=== PATIENT | female | born 1940 | race Caucasian/White ===

== ENCOUNTER 2019-12-18 10:43 | Inpatient (IN) | payer MEDICARE, OTHER ==
[~2019-12-18] VITALS: Ht 167.6 cm; Wt 107.5 kg
[~2019-12-18 10:43] MED LIST: ASPIRIN81 MG PO; AVAPRO300 MG PO; CALCIUM500 MG PO; CLONIDINE HCL0.2 MG PO; PRAVACHOL40 MG PO; TOPROL XL100 MG PO; VITAMIN C PO; VITAMIN C500 M1 PO; VITAMIN E400 UNIT PO; [UNRECOGNIZED DRUG - OTHER] PO
--- OUTSIDE RECORDS SUMMARY | 2019-12-18 10:45 | XMS REPORT ---
[facility] Address Unknown Phone Unavailable Care Team Providers Care Accounting Generalist Name Role Phone Unavailable Unavailable Payers Payer Name Policy Type Policy Number Effective Date Expiration Date Problems This patient has no known problems. Allergies, Adverse Reactions, Alerts Allergy Name Allergy Type Status Severity Reaction(s) Onset Date Inactive Date Treating Clinician Comments No Known Allergies DA Active U 2016-11-23 00:00:00 Medications This patient has no known medications.
[2019-12-18] MEDS ORDERED: SODIUM CHLORIDE 0.9% 500ML 500 ML IV ONE (11:00)
[2019-12-18 11:34] LABS: BASOPHILS % 0.3 % (0.0-1.0); HEMATOCRIT 37.6 % (34.2-44.1); LYMPHOCYTES # (AUTO) 0.8 (1.0-3.2); LYMPHOCYTES % 6.6 % (18.0-39.1); MEAN CORPUSCULAR HEMOGLOBIN 28.3 pg (28-32); MEAN CORPUSCULAR HGB CONC 31.9 g/dL (31-35); MEAN CORPUSCULAR VOLUME 88.7 fL (81-99); MONOCYTES # (AUTO) 1.1 (0.2-0.8); MONOCYTES % 9.3 % (4.4-11.3); NEUTROPHILS # (AUTO) 9.4 (2.1-6.9); NEUTROPHILS % 83.3 % (38.7-80.0); PLATELET COUNT 138 x10e3/uL (140-360); RED BLOOD COUNT 4.24 x10e6/uL (3.6-5.1); RED CELL DISTRIBUTION WIDTH 14.5 % (11.7-14.4)
[2019-12-18 11:48] LABS: INR 1.61; PROTHROMBIN TIME 20.3 seconds (11.9-14.5)
[2019-12-18 11:49] LABS: PARTIAL THROMBOPLASTIN TIME 39.1 seconds (23.8-35.5)
--- NOTE | 2019-12-18 11:53 | Diagnostic Imaging Report ---
Examination: Single AP view of the chest. COMPARISON: None. INDICATION: Shortness of breath, headache DISCUSSION: The lungs are well-inflated. Small bilateral pleural effusions, right larger than left, with bibasilar airspace opacities, as well as patchy perihilar opacities left worse than right Left subclavian approach implantable cardiac device body and leads are noted. Enlargement of the cardiac silhouette with prominence of the central pulmonary vasculature. No acute osseous abnormalities. IMPRESSION: Cardiomegaly with interstitial edema and small bilateral pleural effusions. Bibasilar airspace opacities likely reflect atelectasis, though pneumonia is an additional consideration in the appropriate clinical setting. Signed by: Dr. Stefano Estrada M.D. on 12/18/2019 11:50 AM
[2019-12-18 12:00] LABS: ALBUMIN 3.5 g/dL (3.5-5.0); ANION GAP 18.2 mmol/L (8-16); CALCIUM 9.6 mg/dL (8.4-10.2); CREATININE, SERUM 1.08 mg/dL (0.57-1.11); MAGNESIUM 1.7 MG/DL (1.3-2.1); POTASSIUM 4.2 mmol/L (3.5-5.1)
[2019-12-18 12:20] LABS: CREATINE KINASE MB 0.8 ng/mL (0-5.0); THYROID STIMULATING HORMONE 2.484 uIU/mL (0.350-4.940)
[2019-12-18] MEDS: CEFTRIAXONE SOD 1 GM/NS 50 ML 50 ML IV SCH (12:36)
[2019-12-18 12:47] LABS: INFLUENZAE A&B ANTIGEN (RAPID) NEGATIVE (NEGATIVE); STREPTOCOCCUS GRP A ANTIGEN NEGATIVE (NEGATIVE)
[2019-12-18] MEDS ORDERED: CLONIDINE HCL0.2 MG PO (12:48)
[2019-12-18] MEDS ORDERED: METOPROLOL SUCC50 MG PO (12:51)
[2019-12-18] MEDS ORDERED: XARELTO20 MG PO (12:51)
[2019-12-18] MEDS ORDERED: AMLODIPINE BESY10 MG PO (12:51)
[2019-12-18] MEDS ORDERED: FLECAINIDE ACE100 MG PO (12:51)
[2019-12-18] MEDS: AZITHROMYCIN 500MG/NS 250 ML 250 ML IV SCH (13:02)
[2019-12-18] MEDS ORDERED: FUROSEMIDE INJ 10 MG/ML 4 ML VIAL IV ONE (13:15)
[2019-12-18 14:21] LABS: BILIRUBIN,URINE NEGATIVE (NEGATIVE); CLARITY,URINE CLEAR (CLEAR); COLOR,URINE YELLOW (YELLOW); KETONES,URINE NEGATIVE (NEGATIVE); LEUKOCYTE ESTERASE ,URINE NEGATIVE (NEGATIVE); NITRITE,URINE NEGATIVE (NEGATIVE); PROTEIN,URINE DIPSTICK NEGATIVE (NEGATIVE); URINE UROBILINOGEN 0.2 mg/dL (0.2 - 1)
[2019-12-18 14:42] LABS: BACTERIA,URINE FEW /HPF; EPITHELIAL CELLS,URINE FEW /LPF; RBC,URINE 0-5 /HPF (0-5); WBC,URINE (MAN) 0-5 /HPF (0-5)
--- NOTE | 2019-12-18 15:19 | Pre Op History & Physical ---
REASON FOR ADMISSION: Ms. Valdez is a charming, but elderly 79-year-old woman, who presents to the emergency room with a complaint of cough. HISTORY OF PRESENT ILLNESS: The patient reports over the last three days she has had cough, thought maybe she had some fever, but denies sputum production. She "thought she might be getting the flu" even though she had flu vaccine earlier this year. PAST MEDICAL HISTORY: Significant for longstanding hypertension and hyperlipidemia. She is known to have rheumatic valvular disease with aortic stenosis, aortic insufficiency as far back as 2013. She had previous episodes of atrial fibrillation and had permanent pacemaker implant in November 2016. She had benign breast tumor removed in 1994 and hysterectomy in 1965. MEDICATIONS: Her recent home medications have been: 1. Clonidine 0.2 mg twice a day. 2. Amlodipine 10 mg daily. 3. Alendronate 70 mg weekly. 4. Losartan 100 mg daily. 5. Metoprolol ER 50 mg daily. 6. Xarelto 20 mg daily. 7. Flecainide 100 mg twice a day. PERSONAL AND SOCIAL HISTORY: She does not smoke or drink. FAMILY HISTORY: Her mother lived to be 92 years of age. One brother had rheumatic fever as a child and one brother had coronary artery bypass graft surgery, at 74, spinal cord injury. PHYSICAL EXAMINATION: GENERAL: At this time shows a large white woman about 5 feet 7 inches tall, weighing 213 pounds. VITAL SIGNS: Blood pressure is 130/80. HEAD, EYES, EARS, NOSE, AND THROAT: Unremarkable. NECK: Thick. THORAX: Heart sounds S1 and S2 reduced. There is a 3/6 systolic murmur. LUNGS: Relatively clear. CHEST: Left subclavian pacemaker site intact. ABDOMEN: Normal bowel sounds. EXTREMITIES: Trace pretibial edema. PERTINENT LABORATORY STUDIES: White count 11.2 and hemoglobin 12.0. BUN 14 and creatinine 1.0. Glucose 125. ASSESSMENT: 1. Possible bronchitis and cough. 2. Aortic stenosis with current calculated aortic orifice today 0.6 cm2 with a peak gradient 69 mmHg. PLAN: Given antibiotics and diuretics and we will monitor closely. We will consider whether to plan cardiac catheterization for her. Further management based on clinical course. MD TOBY John/CATHY /[id number]
[2019-12-18 16:03] VITALS: BP 149/73
[2019-12-18 16:30] VITALS: BP 149/90
[2019-12-18] MEDS: CLONIDINE HCL 0.2 MG TAB PO SCH (18:07)
[2019-12-18] MEDS: METOPROLOL SUCCINATE 50 MG TAB XL PO SCH (18:10)
[2019-12-18] MEDS: FLECAINIDE ACETATE 100 MG TAB PO SCH (18:10)
[2019-12-18 19:18] LABS: CREATINE KINASE MB 0.9 ng/mL (0-5.0)
[2019-12-18 20:00] VITALS: BP 141/71
[2019-12-18] MEDS ORDERED: RIVAROXABAN 20 MG TABLET PO SCH (21:00)
[2019-12-18 22:00] VITALS: BP 149/73
[2019-12-19] VITALS (8 sets, daily range): BP systolic 113–146; BP diastolic 60–80
[2019-12-19 02:00] LABS: CREATINE KINASE MB 0.8 ng/mL (0-5.0)
[2019-12-19 06:09] LABS: BASOPHILS % 0.2 % (0.0-1.0); EOSINOPHILS % 0.2 % (0.0-6.0); HEMATOCRIT 35.3 % (34.2-44.1); HEMOGLOBIN 11.3 g/dL (12.0-16.0); LYMPHOCYTES # (AUTO) 0.9 (1.0-3.2); LYMPHOCYTES % 7.3 % (18.0-39.1); MEAN CORPUSCULAR HEMOGLOBIN 28.2 pg (28-32); MONOCYTES # (AUTO) 1.4 (0.2-0.8); MONOCYTES % 11.6 % (4.4-11.3); NEUTROPHILS # (AUTO) 9.7 (2.1-6.9); NEUTROPHILS % 80.2 % (38.7-80.0); PLATELET COUNT 124 x10e3/uL (140-360); RED BLOOD COUNT 4.01 x10e6/uL (3.6-5.1); RED CELL DISTRIBUTION WIDTH 14.3 % (11.7-14.4)
[2019-12-19 06:28] LABS: ALBUMIN/GLOBULIN RATIO 0.9 (0.8-2.0); CREATININE, SERUM 0.98 mg/dL (0.57-1.11)
--- NOTE | 2019-12-19 08:09 | Diagnostic Imaging Report ---
Examination: Single AP view of the chest. COMPARISON: 12/17/2019. INDICATION: Shortness of breath, headache DISCUSSION: Increasing bilateral perihilar patchy airspace disease. Bilateral pleural effusions, right larger than left, with stable bibasilar patchy densities, left greater than right. Left subclavian approach implantable cardiac device body and leads are noted. Enlargement of the cardiac silhouette with prominence of the central pulmonary vasculature. No acute osseous abnormalities. IMPRESSION: Interval increase in findings suggestive of decompensated congestive heart failure with increasing patchy airspace disease particularly on the left midlung either representing pulmonary edema and/or superimposed infection. Signed by: Dr. Susan Villagran M.D. on 12/19/2019 8:06 AM
[2019-12-19] MEDS: CLONIDINE HCL 0.2 MG TAB PO SCH ×2 (08:28→16:37)
[2019-12-19] MEDS: AMLODIPINE BESYLATE 10 MG TAB PO SCH ×2 (08:28→16:38)
[2019-12-19] MEDS: METOPROLOL SUCCINATE 50 MG TAB XL PO SCH ×2 (08:29→16:38)
[2019-12-19] MEDS: FLECAINIDE ACETATE 100 MG TAB PO SCH ×2 (08:29→16:37)
[2019-12-19] MEDS: CEFTRIAXONE SOD 1 GM/NS 50 ML 50 ML IV SCH (16:37)
[2019-12-19] MEDS: AZITHROMYCIN 500MG/NS 250 ML 250 ML IV SCH (16:37)
[2019-12-19] MEDS: FUROSEMIDE INJ 10 MG/ML 4 ML VIAL IV SCH ×2 (16:44→21:01)
[2019-12-19] MEDS ORDERED: POLYETHYLENE GLYCOL 3350 17 GM PACK PO ONE (18:45)
[2019-12-19] MEDS ORDERED: DOCUSATE SODIUM 100 MG CAP PO ONE (18:45)
[2019-12-20] VITALS (8 sets, daily range): BP systolic 102–147; BP diastolic 60–97
[2019-12-20 05:20] LABS: BASOPHILS % 0.3 % (0.0-1.0); EOSINOPHILS # (AUTO) 0.1 (0.0-0.4); EOSINOPHILS % 1.4 % (0.0-6.0); HEMATOCRIT 34.5 % (34.2-44.1); HEMOGLOBIN 11.2 g/dL (12.0-16.0); LYMPHOCYTES # (AUTO) 0.9 (1.0-3.2); LYMPHOCYTES % 9.8 % (18.0-39.1); MEAN CORPUSCULAR HEMOGLOBIN 28.3 pg (28-32); MEAN CORPUSCULAR HGB CONC 32.5 g/dL (31-35); MEAN CORPUSCULAR VOLUME 87.1 fL (81-99); MONOCYTES # (AUTO) 1.1 (0.2-0.8); MONOCYTES % 12.2 % (4.4-11.3); PLATELET COUNT 116 x10e3/uL (140-360); RED BLOOD COUNT 3.96 x10e6/uL (3.6-5.1); RED CELL DISTRIBUTION WIDTH 14.2 % (11.7-14.4)
[2019-12-20 05:39] LABS: ANION GAP 15.3 mmol/L (8-16); CALCIUM 8.7 mg/dL (8.4-10.2); CREATININE, SERUM 0.94 mg/dL (0.57-1.11); POTASSIUM 3.3 mmol/L (3.5-5.1)
[2019-12-20 07:29] LABS: EOSINOPHILS % (MANUAL) 1 % (0-7); LYMPHOCYTES % (MANUAL) 10 % (19-48); MONOCYTES % (MANUAL) 9 % (3.4-9.0); NEUTROPHILS % (MANUAL) 80 % (40-74)
[2019-12-20 07:30] LABS: PLATELET ESTIMATE ADEQUATE; PLATELET MORPHOLOGY COMMENT NORMAL; RBC MORPHOLOGY COMMENT NORMAL
--- NOTE | 2019-12-20 08:09 | Diagnostic Imaging Report ---
Examination: Single AP view of the chest. COMPARISON: 12/19/2019 INDICATION: Pneumonia DISCUSSION: The lungs remain well-inflated. Interval improvement predominantly in perihilar airspace disease. Persistent bibasilar opacities. Small bilateral pleural effusions are again suspected. No new consolidation. Stable enlargement of the cardiomediastinal contour with left subclavian approach implantable cardiac device. No acute osseous abnormalities. IMPRESSION: Interval improvement in pulmonary edema relative to 12/19/2019. No new consolidations. Signed by: Dr. Stefano Estrada M.D. on 12/20/2019 8:07 AM
[2019-12-20] MEDS: POLYETHYLENE GLYCOL 3350 17 GM PACK PO SCH (09:30)
[2019-12-20] MEDS: FUROSEMIDE INJ 10 MG/ML 4 ML VIAL IV SCH ×2 (09:37→21:00)
[2019-12-20] MEDS: FLECAINIDE ACETATE 100 MG TAB PO SCH ×2 (09:37→16:10)
[2019-12-20] MEDS: DOCUSATE SODIUM 100 MG CAP PO SCH (09:37)
[2019-12-20] MEDS: METOPROLOL SUCCINATE 50 MG TAB XL PO SCH ×3 (10:00→21:30)
[2019-12-20] MEDS: CLONIDINE HCL 0.2 MG TAB PO SCH ×2 (11:00→17:00)
[2019-12-20] MEDS: CEFTRIAXONE SOD 1 GM/NS 50 ML 50 ML IV SCH (12:19)
[2019-12-20] MEDS: POTASSIUM CHLORIDE 20 MEQ TAB CR PO SCH (12:46)
[2019-12-20] MEDS: AZITHROMYCIN 500MG/NS 250 ML 250 ML IV SCH (13:23)
[2019-12-20] MEDS ORDERED: DIGOXIN INJ 0.25 MG/ML 2 ML AMP IV NR (20:15)
--- NOTE | 2019-12-20 20:36 | Diagnostic Imaging Report ---
EXAM: CHEST 2 VIEWS DATE: 12/20/2019 12:25 PM INDICATION: ^pneumonia,CHF ^[id number] ^1814 ^N COMPARISON: Chest x-ray, 12/20/2019, 6:05 AM FINDINGS: Lines and tubes: Stable appearance of implanted cardiac device on the left and transvenous lead positions. Heart size is enlarged. Central pulmonary vascular prominence is noted. Patchy opacities the lung bases may represent edema and small pleural effusions. No pneumothorax. Upper abdomen unremarkable. No acute bony abnormality. Marked thoracic kyphosis producing a round back deformity is seen. IMPRESSION: No acute change from exam earlier in the day. Cardiomegaly, central pulmonary vascular prominence, and interstitial edema with small pleural effusions at the lung bases again noted. Signed by: Dr. Farhad Awad M.D. on 12/20/2019 8:34 PM
[2019-12-21] VITALS (9 sets, daily range): BP systolic 116–135; BP diastolic 73–95
[2019-12-21 05:12] LABS: BASOPHILS # (AUTO) 0.1 (0.0-0.1); BASOPHILS % 0.5 % (0.0-1.0); EOSINOPHILS # (AUTO) 0.1 (0.0-0.4); EOSINOPHILS % 0.6 % (0.0-6.0); HEMATOCRIT 32.9 % (34.2-44.1); HEMOGLOBIN 10.5 g/dL (12.0-16.0); LYMPHOCYTES # (AUTO) 1.3 (1.0-3.2); LYMPHOCYTES % 13.4 % (18.0-39.1); MEAN CORPUSCULAR HEMOGLOBIN 27.9 pg (28-32); MEAN CORPUSCULAR HGB CONC 31.9 g/dL (31-35); MEAN CORPUSCULAR VOLUME 87.5 fL (81-99); MONOCYTES # (AUTO) 1.4 (0.2-0.8); MONOCYTES % 14.3 % (4.4-11.3); NEUTROPHILS % 70.9 % (38.7-80.0); PLATELET COUNT 116 x10e3/uL (140-360); RED BLOOD COUNT 3.76 x10e6/uL (3.6-5.1); RED CELL DISTRIBUTION WIDTH 14.1 % (11.7-14.4)
[2019-12-21 05:34] LABS: ANION GAP 12.6 mmol/L (8-16); BLOOD UREA NITROGEN 15 mg/dL (7-26); BUN/CREATININE RATIO 17 (6-25); CALCIUM 8.6 mg/dL (8.4-10.2); CARBON DIOXIDE 31 mmol/L (22-29); CHLORIDE 99 mmol/L (98-107); CREATININE, SERUM 0.86 mg/dL (0.57-1.11); EST GLOMERULAR FILTRATION RATE > 60 ML/MIN (60-); GLUCOSE 105 mg/dL (74-118); POTASSIUM 3.6 mmol/L (3.5-5.1); SODIUM 139 mmol/L (136-145)
[2019-12-21] MEDS: DOCUSATE SODIUM 100 MG CAP PO SCH (08:41)
[2019-12-21] MEDS: POTASSIUM CHLORIDE 20 MEQ TAB CR PO SCH (08:41)
[2019-12-21] MEDS: AMLODIPINE BESYLATE 10 MG TAB PO SCH (08:41)
[2019-12-21] MEDS: FUROSEMIDE INJ 10 MG/ML 4 ML VIAL IV SCH ×2 (08:41→20:34)
[2019-12-21] MEDS: POLYETHYLENE GLYCOL 3350 17 GM PACK PO SCH (08:41)
[2019-12-21] MEDS: FLECAINIDE ACETATE 100 MG TAB PO SCH ×2 (08:42→18:00)
[2019-12-21] MEDS: METOPROLOL SUCCINATE 50 MG TAB XL PO SCH ×3 (08:42→20:33)
[2019-12-21] MEDS: CLONIDINE HCL 0.2 MG TAB PO SCH ×2 (09:00→18:00)
[2019-12-21] MEDS: CEFTRIAXONE SOD 1 GM/NS 50 ML 50 ML IV SCH (12:53)
[2019-12-21] MEDS: AZITHROMYCIN 500MG/NS 250 ML 250 ML IV SCH (13:30)
[2019-12-21] MEDS ORDERED: D5.45%NS/KCL 20MEQ 1,000 ML IV SCH (16:24)
[2019-12-21] MEDS ORDERED: MAGNESIUM/ALUMINUM/SIMETHICONE 30 ML UDC PO PRN (16:30)
[2019-12-21] MEDS ORDERED: LORAZEPAM 0.5 MG TAB PO PRN (16:30)
[2019-12-21] MEDS ORDERED: SODIUM CHLORIDE FLUSH 10 ML SYR INJ PRN ×2 (16:30)
[2019-12-21] MEDS ORDERED: PREDNISONE 20 MG TAB PO PRN (16:30)
[2019-12-21] MEDS ORDERED: DIPHENHYDRAMINE HCL 25 MG CAP PO PRN ×3 (16:30→21:00)
[2019-12-21] MEDS ORDERED: ACETAMINOPHEN 325 MG TAB PO PRN (16:30)
[2019-12-21] MEDS ORDERED: ALPRAZOLAM 0.5 MG TAB PO PRN (16:30)
[2019-12-21] MEDS ORDERED: FAMOTIDINE 20 MG TAB PO PRN (16:30)
[2019-12-21] MEDS ORDERED: HYDROCORTISONE SOD SUCCINATE 100 MG VIAL IV PRN (16:30)
[2019-12-21] MEDS ORDERED: METHYLPREDNISOLONE SOD SUCC 125 MG/2ML VIAL IV PRN (16:30)
--- NOTE | 2019-12-21 17:45 | Diagnostic Imaging Report ---
EXAM: CHEST SINGLE (PORTABLE) DATE: 12/21/2019 4:24 PM INDICATION: ^Cardiac Catheterization ^[id number] ^1700 ^Y COMPARISON: Chest x-ray, 12/20/2019 FINDINGS: Note: No left or right marker is present on the image. Lines and tubes: Stable appearance of implanted cardiac device on the left and transvenous lead positions. The intracardiac leads extend outside the field of view and are not visualized. Enlarged cardiac silhouette again noted. Bilateral central pulmonary vascular prominence. Haziness at the lung bases compatible with small pleural effusions. No pneumothorax. The upper abdomen is outside the field of view. No acute bony abnormality. IMPRESSION: Cardiomegaly with central pulmonary vascular prominence, interstitial edema and likely small pleural effusions, unchanged from previous exam. Signed by: Dr. Farhad Awad M.D. on 12/21/2019 5:42 PM
[2019-12-22] VITALS (12 sets, daily range): BP systolic 104–134; BP diastolic 59–84
[2019-12-22 05:27] LABS: BASOPHILS # (AUTO) 0.1 (0.0-0.1); BASOPHILS % 0.6 % (0.0-1.0); EOSINOPHILS % 0.4 % (0.0-6.0); HEMATOCRIT 34.7 % (34.2-44.1); HEMOGLOBIN 11.1 g/dL (12.0-16.0); LYMPHOCYTES # (AUTO) 1.1 (1.0-3.2); LYMPHOCYTES % 10.7 % (18.0-39.1); MEAN CORPUSCULAR HEMOGLOBIN 27.8 pg (28-32); MEAN CORPUSCULAR VOLUME 86.8 fL (81-99); MONOCYTES # (AUTO) 1.5 (0.2-0.8); MONOCYTES % 14.1 % (4.4-11.3); NEUTROPHILS # (AUTO) 7.8 (2.1-6.9); NEUTROPHILS % 73.8 % (38.7-80.0); PLATELET COUNT 124 x10e3/uL (140-360); RED CELL DISTRIBUTION WIDTH 13.9 % (11.7-14.4)
[2019-12-22 05:39] LABS: INR 1.26; PARTIAL THROMBOPLASTIN TIME 35.9 seconds (23.8-35.5); PROTHROMBIN TIME 16.6 seconds (11.9-14.5)
[2019-12-22 05:50] LABS: ALANINE AMINOTRANSFERASE 14 IU/L (0-55); ALBUMIN 2.5 g/dL (3.5-5.0); ALBUMIN/GLOBULIN RATIO 0.7 (0.8-2.0); ALKALINE PHOSPHATASE 102 IU/L (40-150); ANION GAP 13.4 mmol/L (8-16); BLOOD UREA NITROGEN 15 mg/dL (7-26); BUN/CREATININE RATIO 17 (6-25); CALCIUM 8.8 mg/dL (8.4-10.2); CARBON DIOXIDE 30 mmol/L (22-29); CHLORIDE 96 mmol/L (98-107); CHOLESTEROL 119 MD/DL (0-199); CREATININE, SERUM 0.89 mg/dL (0.57-1.11); EST GLOMERULAR FILTRATION RATE > 60 ML/MIN (60-); GLUCOSE 106 mg/dL (74-118); HDL CHOLESTEROL 30 MG/DL (40-60); LDL CHOLESTEROL 75 MG/DL (60-130); POTASSIUM 3.4 mmol/L (3.5-5.1); SODIUM 136 mmol/L (136-145); TRIGLYCERIDES 72 MG/DL (0-149)
[2019-12-22 06:15] LABS: HCG,QUANTITATIVE < 1.20 mIU/mL (0-10); THYROID STIMULATING HORMONE 1.922 uIU/mL (0.350-4.940)
[2019-12-22] MEDS ORDERED: SODIUM CHLORIDE 0.9% 1000ML 1,000 ML IV SCH (07:00)
[2019-12-22] MEDS: FUROSEMIDE INJ 10 MG/ML 4 ML VIAL IV SCH ×2 (08:43→20:07)
[2019-12-22] MEDS: DOCUSATE SODIUM 100 MG CAP PO SCH (08:43)
[2019-12-22] MEDS: FLECAINIDE ACETATE 100 MG TAB PO SCH ×2 (08:43→17:02)
[2019-12-22] MEDS: POLYETHYLENE GLYCOL 3350 17 GM PACK PO SCH (08:44)
[2019-12-22] MEDS: POTASSIUM CHLORIDE 20 MEQ TAB CR PO SCH (08:44)
[2019-12-22] MEDS: AMLODIPINE BESYLATE 10 MG TAB PO SCH (09:00)
[2019-12-22] MEDS: CLONIDINE HCL 0.2 MG TAB PO SCH ×2 (09:00→17:22)
[2019-12-22] MEDS: METOPROLOL SUCCINATE 50 MG TAB XL PO SCH ×3 (09:00→20:07)
[2019-12-22] MEDS ORDERED: HEPARIN SOD (PORCINE) 1000 UNIT/ML 30ML ONE (11:01)
[2019-12-22] MEDS ORDERED: MIDAZOLAM HCL 2 MG/2 ML VIAL ONE (11:01)
[2019-12-22] MEDS ORDERED: HEPARIN SOD/SOD CHLORIDE 2,000 ML ONE (11:02)
[2019-12-22] MEDS ORDERED: IOPAMIDOL 370 MG/ML 200 ML INFUS..BTL INJ ONE (11:02)
[2019-12-22] MEDS ORDERED: LIDOCAINE HCL 2% LOCAL 20 ML VIAL ONE (11:02)
[2019-12-22] MEDS ORDERED: FENTANYL CITRATE/PF 100MCG/2 ML INJ ONE (11:02)
[2019-12-22] MEDS ORDERED: SODIUM CHLORIDE 0.9% 1000ML 1,000 ML ONE (11:03)
[2019-12-22] MEDS ORDERED: MORPHINE SULFATE INJ 4 MG/ML INJ 1ML ONE (12:46)
[2019-12-22] MEDS ORDERED: ACETAMINOPHEN 325 MG TAB PO PRN (13:15)
[2019-12-22] MEDS: CEFTRIAXONE SOD 1 GM/NS 50 ML 50 ML IV SCH (13:45)
[2019-12-22] MEDS: AZITHROMYCIN 500MG/NS 250 ML 250 ML IV SCH (14:00)
[2019-12-22] MEDS: AMIODARONE HCL 200 MG TAB PO SCH (20:07)
--- NOTE | 2019-12-22 23:33 | Operative Report ---
DATE OF PROCEDURE: 12/22/2019 SURGEON: Luigi Ruano MD INDICATION: Congestive heart failure and aortic stenosis. PROCEDURE IN DETAIL: The patient was brought to the [address] in a fasting and partially sedated state, premedicated with 0.5 mg of Versed. Right groin prepped with scrub and 2% Xylocaine and 4-Bangladeshi sheath placed in the right common femoral artery and a 6-Bangladeshi sheath in the right common femoral vein. Then, right heart catheterization performed with thermodilution [place]. Cardiac outputs were performed. Initial attempts were made to cross the valve with the 4-Bangladeshi catheters. However, this was changed to 6-Bangladeshi sheath and 6-Bangladeshi multipurpose catheter. The valve was crossed with the Glidewire and both pressures measured and a ventriculogram performed. Pullback was performed and coronary angiograms were performed with a 4-Bangladeshi right Rahel 4 and the 6-Bangladeshi left Rahel 5. The pressures were reported on the chart. The right atrium is blank over 12, right ventricle is 44/9, pulmonary artery 44/24, and pulmonary capillary wedge pressure is blank over 25. The left ventricular pressure is 180/19 and aortic pressure is 125/65. Inspection of films demonstrate that the left ventricular function is relatively good with an estimated ejection fraction of 50% with the knowledge that she is having atrial fibrillation at this time. Coronary injections demonstrate a right-dominant system with no significant stenotic coronary artery disease. The thermodilution cardiac output is 4.67 L/minute and the calculated valve area is 0.49 cm2. The catheters were removed. Pressure held and she was sent to her room in stable condition. There was no blood loss. No complication. FINAL IMPRESSION: 1. No significant coronary artery disease. 2. Good left ventricular function with an estimated ejection fraction of 50%. 3. Critical aortic stenosis with mean gradient of 51 mmHg and the calculated valve orifice of 0.49 cm2. Recommendation is for valve replacement. MD TOBY John/LUDAL /[id number]
--- NOTE | 2019-12-22 23:43 | Consultation ---
DATE OF CONSULTATION: 12/22/2019 REASON FOR CONSULT: Atrial fibrillation with rapid ventricular response. HISTORY OF PRESENT ILLNESS: This is an 79-year-old woman with history of hypertension, history of sick sinus syndrome, dual-chamber pacemaker, who has developed congestive heart failure over the last few months, she presented with progressive shortness of breath and fatigue and weakness, she is congestive heart failure class 3, who was found to have atrial fibrillation with rapid ventricular response. Pacemaker interrogation demonstrated normal functioning dual-chamber device with undersensing atrial fibrillation, so she has probably has been persisting over the last few months, then she is undergoing a heart catheterization by Dr. Ruano. Also, the patient has aortic stenosis, awaiting workup. REVIEW OF SYSTEMS: CONSTITUTIONAL: Negative. CARDIOVASCULAR: As per HPI. RESPIRATORY: As per HPI. GASTROINTESTINAL: Negative. GENITOURINARY: Negative. MUSCULOSKELETAL: Negative. EYES: Negative. ENT: Negative. ALLERGY/IMMUNOLOGY: Negative. PSYCHIATRIC: Negative. PAST MEDICAL HISTORY: Atrial fibrillation and sick sinus syndrome. PAST SURGICAL HISTORY: Pacemaker. FAMILY HISTORY: No premature coronary artery disease. SOCIAL HISTORY: Denies smoking or alcohol. PHYSICAL EXAMINATION: VITAL SIGNS: Blood pressure 100/60, pulse 130 beats per minute, respirations 22, and O2 saturation 98%. GENERAL: No acute distress. HEENT: Moist mucous membranes. CARDIOVASCULAR: Irregular. RESPIRATORY: Crackles at bases. ABDOMEN: Soft and nontender. MUSCULOSKELETAL: 2+ distal pulses. NEUROLOGICAL: No focal deficits. SKIN: No lesions. PSYCHIATRIC: Normal thought process. EKG, atrial fibrillation with rapid ventricular response with bundle branch block. IMPRESSION: 1. Persistent atrial fibrillation with rapid ventricular response refractory to flecainide and beta blockers. 2. Normal functioning dual-chamber device with undersensing atrial fibrillation. 3. Aortic stenosis. 4. Congestive heart failure. RECOMMENDATIONS: I had a long discussion with the patient, went over the nature of the disease, and explained the different options. Given her severity of the aortic stenosis, she will probably not be a good candidate for ablation of atrial fibrillation for general anesthesia. Also, appears to be persistent atrial fibrillation, so the success will be lower. The alternative to this would be to perform an AV node ablation and upgrade to biventricular device. However, we are still awaiting for the evaluation of the ejection fraction, also coronary angiogram, and also evaluation of the aortic valve. If in fact the aortic valve stenosis is severe, then the patient may undergo workup for consideration of aortic valve replacement versus TAVR and we will postpone any procedures from the EP standpoint. If in the near future, she continues to be in atrial fibrillation refractory to medical therapy, we will then consider the AV node ablation, so we will go ahead and stop the flecainide and add amiodarone and we will follow up as an outpatient. Thank you for letting us to participate in Ms. Valdez's healthcare. MD APOLLO Joseph/MODL /[id number]
[2019-12-23] VITALS (8 sets, daily range): BP systolic 87–131; BP diastolic 70–82
[2019-12-23] MEDS: DOCUSATE SODIUM 100 MG CAP PO SCH (08:26)
[2019-12-23] MEDS: METOPROLOL SUCCINATE 50 MG TAB XL PO SCH ×3 (08:28→20:40)
[2019-12-23] MEDS: POTASSIUM CHLORIDE 20 MEQ TAB CR PO SCH (08:28)
[2019-12-23] MEDS: POLYETHYLENE GLYCOL 3350 17 GM PACK PO SCH (08:28)
[2019-12-23] MEDS: AMLODIPINE BESYLATE 10 MG TAB PO SCH (08:28)
[2019-12-23] MEDS: AMIODARONE HCL 200 MG TAB PO SCH ×2 (08:28→20:40)
[2019-12-23] MEDS: FUROSEMIDE INJ 10 MG/ML 4 ML VIAL IV SCH ×2 (08:29→20:40)
[2019-12-23] MEDS: CLONIDINE HCL 0.2 MG TAB PO SCH ×2 (08:29→17:00)
[2019-12-23] MEDS: CEFTRIAXONE SOD 1 GM/NS 50 ML 50 ML IV SCH (12:15)
[2019-12-23] MEDS ORDERED: POTASSIUM CHLORIDE 20 MEQ TAB CR PO ONE (12:30)
[2019-12-23] MEDS: AZITHROMYCIN 500MG/NS 250 ML 250 ML IV SCH (12:30)
[2019-12-24 01:21] VITALS: BP 110/62
[2019-12-24 05:03] VITALS: BP 113/65
[2019-12-24 05:29] LABS: BASOPHILS # (AUTO) 0.1 (0.0-0.1); BASOPHILS % 0.5 % (0.0-1.0); EOSINOPHILS # (AUTO) 0.2 (0.0-0.4); EOSINOPHILS % 1.7 % (0.0-6.0); HEMATOCRIT 33.8 % (34.2-44.1); HEMOGLOBIN 10.8 g/dL (12.0-16.0); LYMPHOCYTES # (AUTO) 1.3 (1.0-3.2); LYMPHOCYTES % 13.2 % (18.0-39.1); MEAN CORPUSCULAR VOLUME 87.6 fL (81-99); MONOCYTES # (AUTO) 1.2 (0.2-0.8); MONOCYTES % 12.4 % (4.4-11.3); NEUTROPHILS # (AUTO) 6.9 (2.1-6.9); PLATELET COUNT 129 x10e3/uL (140-360); RED BLOOD COUNT 3.86 x10e6/uL (3.6-5.1); RED CELL DISTRIBUTION WIDTH 13.7 % (11.7-14.4)
[2019-12-24 05:49] LABS: ANION GAP 12.8 mmol/L (8-16); CREATININE, SERUM 1.11 mg/dL (0.57-1.11); POTASSIUM 3.8 mmol/L (3.5-5.1)
[2019-12-24 08:10] VITALS: BP 119/82
[2019-12-24 08:20] VITALS: BP 119/82
[2019-12-24] MEDS: AMIODARONE HCL 200 MG TAB PO SCH (09:01)
[2019-12-24] MEDS: FUROSEMIDE INJ 10 MG/ML 4 ML VIAL IV SCH (09:01)
[2019-12-24] MEDS: POLYETHYLENE GLYCOL 3350 17 GM PACK PO SCH (09:01)
[2019-12-24] MEDS: CLONIDINE HCL 0.2 MG TAB PO SCH ×2 (09:01→17:00)
[2019-12-24] MEDS: DOCUSATE SODIUM 100 MG CAP PO SCH (09:01)
[2019-12-24] MEDS: METOPROLOL SUCCINATE 50 MG TAB XL PO SCH ×2 (09:02→17:07)
[2019-12-24] MEDS: AMLODIPINE BESYLATE 10 MG TAB PO SCH (09:02)
[2019-12-24] MEDS: POTASSIUM CHLORIDE 20 MEQ TAB CR PO SCH (09:05)
[2019-12-24] MEDS ORDERED: TOPROL XL50 MG PO (11:40)
[2019-12-24] MEDS ORDERED: AMIODARONE HCL200 MG PO (11:40)
[2019-12-24] MEDS ORDERED: KLOR-CON M2020 MEQ PO (11:40)
[2019-12-24 11:44] VITALS: BP 101/69
[2019-12-24] MEDS ORDERED: FUROSEMIDE40 MG PO (11:56)
[2019-12-24 16:20] VITALS: BP 102/97
[2019-12-24] MEDS ORDERED: FUROSEMIDE 40 MG TAB PO SCH (18:00)
--- NOTE | 2019-12-25 02:35 | Discharge Summary ---
Ms [facility] 79-year[facility] lady, who presented to the emergency room with a complaint of shortness of breath and cough. HISTORY OF PRESENT ILLNESS: Initial chest x-ray suggested likely a combination of congestive heart failure and bronchitis/pneumonia. She was started on broad-spectrum antibiotics and given furosemide 40 mg IV push twice daily. Echocardiogram showed critical aortic stenosis and the patient had intermittent atrial fibrillation. Dr. Marti was consulted and her previous Tambocor was discontinued. She was given amiodarone loading. She had cardiac catheterization performed on the , which showed critical aortic stenosis. Ejection fraction about 50%. Calculated valve orifice 0.49 cm2. She had no coronary disease. The patient tolerated the procedure well. Her oxygen was tapered. She remains in atrial fibrillation, but her rate is some better. She is discharged to home today to add furosemide 40 mg twice a day to her medical regimen. Discontinue Tambocor and use amiodarone 400 mg daily, Xarelto 20 mg daily, and K-Dur 20 mEq daily. She will increase her metoprolol to 3 times daily. She will follow up in the office today and plan for transaortic valve replacement. Pacemaker is functioning appropriately. DISCHARGE DIAGNOSES: 1. Congestive heart failure with acute exacerbation of chronic congestive failure. 2. Critical aortic stenosis. 3. Recurrent atrial fibrillation. 4. Pacemaker function intact. 5. Absence of coronary disease. 6. Ejection fraction about 50%. 7. Hypertension. MD TOBY John/CATHY /[id number] cc: MD Tab Santiago MD
[2019-12-25] MEDS ORDERED: AMIODARONE HCL 200 MG TAB PO SCH (09:00)
== END 2019-12-24 18:08 | disposition home or self-care (01) | DRG 286 ==
LOC: ER 10:43 → ERHOLD 11:56 → MED/SURG2 15:02
PROVIDERS: ADMIT Internal Medicine Cardiovascular Disease; ATTEND Internal Medicine Cardiovascular Disease
PROC: 4A023N6 Measurement of Cardiac Sampling and Pressure, Right Heart, Percutaneous Approach (ICD-10-PCS; principal; 2019-12-18)
PROC: B2111ZZ Fluoroscopy of Multiple Coronary Arteries using Low Osmolar Contrast (ICD-10-PCS; 2019-12-18)
PROC: B2161ZZ Fluoroscopy of Right and Left Heart using Low Osmolar Contrast (ICD-10-PCS; 2019-12-18)
DX: I35.0 Nonrheumatic aortic (valve) stenosis (principal); I50.23 Acute on chronic systolic (congestive) heart failure; I48.19 Other persistent atrial fibrillation; I11.0 Hypertensive heart disease with heart failure; Z95.810 Presence of automatic (implantable) cardiac defibrillator; Z95.2 Presence of prosthetic heart valve; E78.5 Hyperlipidemia, unspecified; J40 Bronchitis, not specified as acute or chronic
CPT/HCPCS: 36415; 51700; 71045; 71046; 80048; 80053; 80061; 81001; 82550; 82553; 83518; 83605; 83735; 83880; 84443; 84484; 84702; 85025; 85610; 85730; 87040; 87070; 87086; 87400; 93005; 93306; 93460; 97139; 99152; 99153; 99284; C1751; C1766; J0456; J0696; J1160; J1644; J1940; J2001; J2250; J2270; J3010; J7030; J7040; Q9967